=== PATIENT | female | born 1970 | race Caucasian/White ===

== ENCOUNTER 2017-04-23 19:28 | Emergency (ER) | payer BC ==
[~2017-04-23] VITALS: Ht 170.2 cm; Wt 62.0 kg
[2017-04-23 19:31] VITALS: BP 121/72; PULSE 89; RESP 18; TEMP 98.9; O2SAT 95
--- NOTE | 2017-04-23 20:44 | PD ---
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 INCIDENT OCCURRED YESTERDAY. PATIENT CONCERNED BECAUSE IT WAS THE SAME LE THAT SHE DEVELOPED A DVT ON SEVERAL YEARS AGO BUT SINCE IT HAS RESOLVED AND SHE IS NO LONGER ON BLOOD THINNERS. HOWEVER THAT SAME LLE SHE HAS HAD STENTS PLACED ON FEMORAL AREA. PFSH Past Medical History Diminished Hearing: No Deep Vein Thrombosis: Yes (HX OF IN LEFT LEG) ?: Not Past Surgical History Abdominal Surgery: Yes (LAP GASTRIC) Section: Yes (X1) Cholecystectomy: Yes Other Surgery: Yes (SKIN REMOVAL, LEFT SAPHENOUS VEIN, STENTS PLACED IN LEFT LEG) Social History Alcohol Use: No Tobacco Use: No Substance Use: No Allergies-Medications (Allergen,Severity, Reaction): Coded Allergies: No Known Allergies (Unverified , 04/23/17) Reported Meds & Prescriptions Reported Meds & Active Scripts Active No Active Prescriptions or Reported Medications Review of Systems Except as stated in HPI: all other systems reviewed are Neg General / Constitutional: No: Fever Eyes: No: Visual changes HENT: No: Headaches Cardiovascular: No: Chest Pain or Discomfort Respiratory: No: Shortness of Breath Gastrointestinal: No: Abdominal Pain Genitourinary: No: Dysuria Musculoskeletal: Positive: Edema (LLE) Skin: No Rash Neurologic: No: Weakness Psychiatric: No: Depression Endocrine: No: Polydipsia Hematologic/Lymphatic: No: Easy Bruising Physical Exam Narrative GENERAL: SKIN: Warm and dry....NO ERYTHEMA TO LLE HOWEVER SPIDER VEINS AND EDEMA PRESENT ON LLE, SLIGHT ECHYMOSIS INFRAPATELLAR AND LEFT SECOND TOE IS HYPERFLEXED AND ECHYMOTIC FROM FALL. NO OPEN WOUNDS HEAD: Atraumatic. Normocephalic. EYES: Pupils equal and round. No scleral icterus. No injection or drainage. ENT: No nasal bleeding or discharge. Mucous membranes pink and moist. NECK: Trachea midline. No JVD. CARDIOVASCULAR: Regular rate and rhythm. RESPIRATORY: No accessory muscle use. Clear to auscultation. Breath sounds equal bilaterally. GASTROINTESTINAL: Abdomen soft, non-tender, nondistended. MUSCULOSKELETAL: Extremities without clubbing, cyanosis, or edema. No obvious deformities. NEUROLOGICAL: Awake and alert. No obvious cranial nerve deficits. Motor grossly within normal limits. Five out of 5 muscle strength in the arms and legs. Normal speech. PSYCHIATRIC: Appropriate mood and affect; insight and judgment normal. Data Data Last Documented VS Vital Signs Date Time Temp Pulse Resp B/P (MAP) Pulse Ox O2 Delivery O2 Flow Rate FiO2 04/23/17 19:31 98.9 89 18 121/72 (88) 95 Room Air Orders Orders Us Leg Venous Doppler (04/23/17 20:15) Foot, Complete (Obf0arr) (04/23/17 20:15) Knee, Complete (4vws) (04/23/17 20:15) Tibia/Fibula (Ap/Lat) (04/23/17 20:15) MDM Medical Decision Making Medical Screen Exam Complete: Yes Emergency Medical Condition: Yes Medical Record Reviewed: Yes Differential Diagnosis TOE FX V TOE CONTUSION V TOE DISLOCATION V DVT V CONTUSION Diagnosis Primary Impression: Contusion Qualified Codes: S80.12XA - Contusion of left lower leg, initial encounter Additional Impression: nonoccluve DVT LLE Patient Instructions: Contusion in Adults (ED), Deep Venous Thrombosis (DC), General Instructions Departure Forms: Tests/Procedures, Work Release Enter return to work date: Apr 26, 2017 Scripts Rivaroxaban Starter Pack 15 & 20 mg (Xarelto Starter Pack 15 & 20 mg) 15 Mg (42) - 20 Mg (9) Tab 1 TAB PO DIRECTED for Blood Clot Prevention for 30 Days, #1 PACK Prov: Demetrius Mcdermott MD 04/23/17 Disposition: 01 DISCHARGE HOME Condition: Stable Demetrius Mcdermott MD Apr 23, 2017 20:44
--- NOTE | 2017-04-23 20:54 | RADRPT ---
EXAM DATE/TIME: 04/23/2017 20:34 [facility] COMPARISON: No previous studies available for comparison. INDICATIONS : Pain and swelling left knee, fell MEDICAL HISTORY : Blood clot left leg SURGICAL HISTORY : Cholecystectomy. Gastric bypass. ENCOUNTER: Initial ACUITY: 1 day PAIN SCORE: 8/10 LOCATION: Left Knee FINDINGS: No fracture or subluxation seen of the right knee. There is mild to moderate medial and patellofemora l compartment osteoarthritis with marginal osteophytosis. A very small joint effusion is evident. CONCLUSION: Intact right knee. Degenerative changes and a tiny effusion as above. Pierce Galvan MD on April 23, 2017 at 20:51 Board Certified Radiologist. This report was verified electronically.
--- NOTE | 2017-04-23 20:57 | RADRPT ---
EXAM DATE/TIME: 04/23/2017 20:36 [facility] COMPARISON: No previous studies available for comparison. INDICATIONS : Pain and swelling left tibia, fell MEDICAL HISTORY : Blood clot left leg SURGICAL HISTORY : Gastric bypass. Cholecystectomy. ENCOUNTER: Initial ACUITY: 1 day PAIN SCORE: 8/10 LOCATION: Left Tibia FINDINGS: Two view examination of the left tibia demonstrates no evidence of fracture or dislocation. Bony min eralization is normal. The soft tissue structures are intact. CONCLUSION: Left tibia and fibula within normal limits. Pierce Galvan MD on April 23, 2017 at 20:53 Board Certified Radiologist. This report was verified electronically.
--- NOTE | 2017-04-23 21:02 | RADRPT ---
EXAM DATE/TIME: 04/23/2017 20:38 [facility] COMPARISON: No previous studies available for comparison. INDICATIONS : Pain and swelling left foot, fell MEDICAL HISTORY : Blood clot left leg SURGICAL HISTORY : Gastric bypass. Cholecystectomy. ENCOUNTER: Initial ACUITY: 1 day PAIN SCORE: 8/10 LOCATION: Left Foot FINDINGS: The left foot is intact. No subluxations. Bipartite tibial sesamoid with mild degenerative changes noted. There is also mild osteoarthritis of Lisfranc joint. A moderate-sized heel spur and small enthesophyte of distal Achilles noted. 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 CONCLUSION: Chronic findings as above. No fracture or other acute abnormality. Pierce Galvan MD on April 23, 2017 at 20:58 Board Certified Radiologist. This report was verified electronically.
--- NOTE | 2017-04-23 21:50 | RADRPT ---
EXAM DATE/TIME: 04/23/2017 20:48 [facility] COMPARISON: No previous studies available for comparison. INDICATIONS : Left leg pain after fall. MEDICAL HISTORY : DVT. SURGICAL HISTORY : section. LAP gastric. Left leg multiple venous stents. GSV ablation ENCOUNTER: Initial ACUITY: 2 day PAIN SCORE: 9/10 LOCATION: Left leg. TECHNIQUE: Venous ultrasound of the leg was performed from the inguinal ligament to the proximal calf. Real-maliha e, color Doppler and spectral tracing, compression and augmentation techniques were used. FINDINGS: There is a stent in the left iliac and common femoral vein, grossly patent. Just below the stent is n onocclusive thrombus in the common femoral vein and there is patchy chronic appearing thrombus in the superficial femoral vein. There appears to be some collateral vessel formation in the region of the distal superficial femoral vein and popliteal vein. The veins below the knee are tortuous but patent. 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 Apparent collateral vessel formation. No definite acute/occlusive thrombosis. Pierce Galvan MD on April 23, 2017 at 21:45 Board Certified Radiologist. This report was verified electronically.
[2017-04-23] MEDS ORDERED: RIVA1TAB PO (22:16)
[2017-04-23] MEDS ORDERED: ENOXAPARIN SODIUM 60 MG/0.6 ML SYRINGE SQ ONE (22:30)
== END 2017-04-23 23:06 | disposition home or self-care (01) ==
LOC: NEPD 19:28
DX: S80.12XA Contusion of left lower leg, initial encounter (principal); I82.412 Acute embolism and thrombosis of left femoral vein; Z86.718 Personal history of other venous thrombosis and embolism; W10.9XXA Fall (on) (from) unspecified stairs and steps, initial encounter
CPT/HCPCS: 73564; 73590; 73630; 93971; 96372; 99285; J1650